=== PATIENT | male | born 1990 | race Caucasian/White ===

== ENCOUNTER 2018-05-14 13:47 | Emergency (ER) | payer OTHER, SELFPAY ==
[2018-05-14 13:55] VITALS: BP 154/98; PULSE 115; RESP 19; TEMP 37.5; O2SAT 99; BMI 18.6
--- NOTE | 2018-05-14 13:56 | DI.RAD.S_ITS ---
PROCEDURE: XR CHEST 2V INDICATIONS: SOB TECHNIQUE: 2 views of the chest were acquired. COMPARISON: None. FINDINGS: Surgical changes and devices: None. Lungs and pleura: No pleural effusions or pneumothorax. Lungs are clear. Mediastinum: Mediastinal contours are normal. Heart size is normal. Bones and chest wall: No suspicious bony abnormalities. Soft tissues appear unremarkable. IMPRESSION: Negative chest. No acute cardiopulmonary process is evident. Dictated by: Ayan Maradiaga M.D. on 05/14/2018 at 13:43 Approved by: Ayan Maradiaga M.D. on 05/14/2018 at 13:46
[2018-05-14 14:15] LABS: Add Manual Diff / Slide Review NO; Basophils Percent Auto 0.3 % (0-2); Eosinophils Percent Auto 1.3 % (2-4); Hematocrit 46.3 % (41-53); Hemoglobin 15.7 g/dL (13.5-17.5); Lymphocytes Percent Auto 16.7 % (25-40); Mean Corpuscular HGB Conc 33.9 % (30-36); Mean Corpuscular Hemoglobin 32.7 PG (26-34); Mean Corpuscular Volume 96.3 fL (80-100); Monocytes Percent Auto 6.8 % (3-14); Neutrophils Absolute Auto 8200 /uL (3000-5900); Neutrophils Percent Auto 74.9 % (50-75); Platelet Count 326 X10^3/uL (150-400); Red Blood Cell Count 4.81 X10^6/uL (4.5-5.9); Red Cell Distribution Width 12.9 % (11.6-14.8)
--- NOTE | 2018-05-14 14:15 | PC.NURSE ---
Patient appears anxious. States he has been known to be anxious in the past. Pt repeatedly asks if there is anything serious going on. Reassured pt that we will let him know as soon as we find anything out. Pt talking to family on phone.
--- NOTE | 2018-05-14 14:15 | ED.CHESTPAIN ---
HPI - Chest Pain General Chief Complaint: Chest Pain Stated Complaint: Chest Pain Time Seen by Provider: 05/14/18 13:49 Source: patient Mode of arrival: ambulatory Limitations: no limitations History of Present Illness HPI narrative: 27M nonsmoker, otherwise healthy presents to the emergency department with a chief complaint of left anterior chest pain for the past few days. He has had some runny nose and nasal congestion along with sore throat but denies cough nor fever or chills. He denies any shortness of breath. He denies any injury. He denies any history of the same. He has had no recent long-distance travel, prior clots, injuries or surgeries. He denies any strong family history of cardiac disease. MD complaint: chest pain Onset (ago): day(s) Duration: intermittent Pain location: left chest Severity: mild Quality: dull Pain radiation: none Relieving factors: nothing Exacerbating factors: nothing Context: recent illness Treatments prior to arrival chest pain: none Related Data Home Medications Medication Instructions Recorded Confirmed [facility] Vitapack 1 packet PO DAILY 05/14/18 05/14/18 acetaminophen 1 dose PO PRN PRN 05/14/18 05/14/18 Allergies Allergy/AdvReac Type Severity Reaction Status Date / Time No Known Allergies Allergy Uncoded 09/13/17 12:09 Review of Systems Review of Systems All systems reviewed & are unremarkable except as noted in HPI and below Constitutional Denies chills, Denies fever(s), Denies lethargy and Denies weakness Eyes Denies change in vision, Denies eye discharge, Denies irritation and Denies loss of vision ENT Ears, Nose, Mouth, and Throat: Denies change in voice, Denies neck pain and Denies sore throat Cardiovascular Reports chest pain, Denies irregular heart rhythm, Denies lightheadedness, Denies palpitations, Denies dyspnea, Denies dyspnea on exertion and Denies orthopnea Respiratory Denies cough, Denies dyspnea, Denies dyspnea on exertion and Denies wheezing Gastrointestinal Gastrointestinal: Denies abdominal pain, Denies change in bowel habits, Denies diarrhea, Denies nausea and Denies vomiting Genitourinary Denies hematuria, Denies flank pain, Denies urinary incontinence and Denies urinary urgency Musculoskeletal Denies neck pain Integumentary/Breasts Denies pruritus, Denies erythema, Denies rash and Denies wounds Neurologic Denies confusion, Denies loss of vision and Denies weakness Psychiatric Denies anxiety, Denies confusion, Denies depression, Denies homicidal ideation and Denies suicidal ideation Endocrine Denies palpitations Hematologic/Lymphatic Denies easy bruising Allergic/Immunologic Denies wheezing [facility], [facility] Social History Smoking Status: Never smoker Exam Narrative Exam Narrative: 27-year-old patient obviously anxious and in mild distress. Initial Vital Signs Initial Vital Signs: Vital Signs Temperature 99.5 F 05/14/18 13:55 Pulse Rate 115 H 05/14/18 13:55 Respiratory Rate 19 05/14/18 13:55 Blood Pressure 154/98 H 05/14/18 13:55 Pulse Oximetry 99 05/14/18 13:55 Const General: cooperative and well developed Nutritional Appearance: well nourished Orientation: alert, awake, oriented x3 and not confused HENMT Head: normocephalic and atraumatic Ears: external ears normal and TM's normal bilaterally Nose: external nose normal and No nasal discharge Face and sinus: sinuses nontender, face symmetric, no sinus tenderness and No dry mucous membranes Mouth: oral mucosae normal and moist mucous membranes Teeth and gingiva: dentition normal Throat: tonsils normal and uvula midline Neck Neck: normal visual inspection, trachea midline, No lymphadenopathy, No midline deformity and No JVD Lymphatic: No lymphedema Resp Effort & Inspection: normal respiratory effort, able to speak in complete sentences, no respiratory distress and no use of accessory muscles Auscultation: clear to auscultation bilaterally, no rales, no rhonchi and no wheezes GI Inspection: non-distended Palpation: soft, no hepatosplenomegaly, No guarding, No pulsatile mass and No tender Auscultation: normal bowel sounds Back/Spine/Pelvis Back: No CVA tenderness Cervical Spine: cervical ROM normal and No pain with cervical ROM Thoracic/Lumbar Spine: thoracic and lumbar spine normal to inspection Neuro General: alert, oriented x3, gait normal and no focal motor deficits Speech: speech normal Psych Appearance: well kempt Mental Status: mental status grossly normal Attitude: cooperative Thought Content: normal and suicidality Judgment: judgment good Course Orders Ordered: ED Orders 05/14/18 13:56 XR chest 2V Stat EKG-12 Lead Stat 05/14/18 14:00 Influenza A and B by PCR Rapid Stat 05/14/18 14:10 Basic Metabolic Panel Stat Complete Blood Count AUTO DIFF Stat D Dimer Stat Troponin I Stat Discontinued Medications Sodium Chloride (Normal Saline 0.9%) 1,000 mls @ 1,000 mls/hr IV BOLUS ONE Stop: 05/14/18 14:54 Last Infusion: 05/14/18 15:15 Dose: 0 mls/hr Admin: 05/14/18 14:16 Dose: 1,000 mls/hr Ketorolac Tromethamine (Toradol) 15 mg IV NOW ONE Stop: 05/14/18 13:56 Last Admin: 05/14/18 14:16 Dose: 15 mg Vital Signs - 8 hr 05/14/18 13:55 05/14/18 14:27 05/14/18 14:50 Temperature 99.5 F Pulse Rate 115 H 97 H 85 Respiratory Rate 19 20 Blood Pressure 154/98 H Blood Pressure [Right Arm] 142/74 H Pulse Oximetry 99 100 05/14/18 14:55 05/14/18 15:46 05/14/18 15:48 Temperature 99.2 F Pulse Rate 99 H 98 H 105 H Respiratory Rate 19 20 16 Blood Pressure 124/62 Blood Pressure [Right Arm] 123/68 124/62 Pulse Oximetry 100 100 98 MDM - Chest Pain Differential Diagnosis Likely fracture of rib, pneumothorax, stable angina, unstable angina pectoris, atypical chest pain, st elevation myocardial infarction, costochondritis, chest pain and biliary colic Medical Records Data Attestation: I reviewed the patient's medical records. Lab Data Attestation: I reviewed the patient's lab results. Result diagrams: 05/14/18 14:10 05/14/18 14:10 Lab Results 05/14/18 05/14/18 05/14/18 Range/Units 14:00 14:10 14:10 WBC 11.0 (4.5-11.0) X10^3/uL RBC 4.81 (4.5-5.9) X10^6/uL Hgb 15.7 (13.5-17.5) g/dL Hct 46.3 (41-53) % MCV 96.3 (80-100) fL MCH 32.7 (26-34) PG MCHC 33.9 (30-36) % RDW 12.9 (11.6-14.8) % Plt Count 326 (150-400) X10^3/uL Neut % (Auto) 74.9 (50-75) % Lymph % (Auto) 16.7 L (25-40) % [place] % (Auto) 6.8 (3-14) % Eos % (Auto) 1.3 L (2-4) % Baso % (Auto) 0.3 (0-2) % Neut # (Auto) 8200 H (3565-0285) /uL D-Dimer (<230) ng/mL Sodium 143 (137-145) mmol/L Potassium 4.0 (3.4-5.1) mmol/L Chloride 104 (98-107) mmol/L Carbon Dioxide 21 L (22-32) mmol/L BUN 17 (9-20) mg/dL Creatinine 0.80 (0.66-1.25) mg/dL Estimated GFR > 60.0 (>60) mL/min BUN/Creatinine Ratio 21.3 (6-22) Glucose 93 (70-100) mg/dL Calcium 9.7 (8.4-10.2) mg/dL Troponin I < 0.012 (0.01-0.034) ng/mL Influenza A & B (PCR) Negative (Negative) 05/14/18 Range/Units 14:10 WBC (4.5-11.0) X10^3/uL RBC (4.5-5.9) X10^6/uL Hgb (13.5-17.5) g/dL Hct (41-53) % MCV (80-100) fL MCH (26-34) PG MCHC (30-36) % RDW (11.6-14.8) % Plt Count (150-400) X10^3/uL Neut % (Auto) (50-75) % Lymph % (Auto) (25-40) % [place] % (Auto) (3-14) % Eos % (Auto) (2-4) % Baso % (Auto) (0-2) % Neut # (Auto) (4769-8243) /uL D-Dimer < 200 (<230) ng/mL Sodium (137-145) mmol/L Potassium (3.4-5.1) mmol/L Chloride (98-107) mmol/L Carbon Dioxide (22-32) mmol/L BUN (9-20) mg/dL Creatinine (0.66-1.25) mg/dL Estimated GFR (>60) mL/min BUN/Creatinine Ratio (6-22) Glucose (70-100) mg/dL Calcium (8.4-10.2) mg/dL Troponin I (0.01-0.034) ng/mL Influenza A & B (PCR) (Negative) Point of Care Testing Rapid Strep A Negative Imaging Data Chest x-ray: Radiologist's impression: [address] [address] XRay Report Signed Patient: Nomi Arguello [facility]#: [id number] : 1990Acct:[id number] Age/Sex: 27 / MDate of Service: 05/14/18 Loc: ED Accession Number: [id number] Procedure: XR chest 2V Ordering Provider: Rian Deras D.O. PROCEDURE: XR CHEST 2V INDICATIONS: SOB TECHNIQUE: 2 views of the chest were acquired. COMPARISON: None. FINDINGS: Surgical changes and devices: None. Lungs and pleura: No pleural effusions or pneumothorax. Lungs are clear. Mediastinum: Mediastinal contours are normal. Heart size is normal. Bones and chest wall: No suspicious bony abnormalities. Soft tissues appear unremarkable. IMPRESSION: Negative chest. No acute cardiopulmonary process is evident. Dictated by: Ayan Maradiaga M.D. on 05/14/2018 at 13:43 Approved by: Ayan Maradiaga M.D. on 05/14/2018 at 13:46 ECG Data Attestation: I personally reviewed and interpreted this ECG as follows: Prior ECG tracings: not available for review Interpretation: EKG is normal sinus rhythm rate [102 ] and free of any signs of ischemia or ectopy. No ST segmental elevation or depression. No T wave inversions MDM Narrative Medical decision making narrative: Multiple etiologies of this patient's chest pain considered including ischemic but thought less likely given lack of risk factors, classic ischemic description of pain or EKG changes. Pulmonary embolism considered but no imaging needed given low pretest probability and risk factors. Discharge Plan Departure Patient Disposition: Home Clinical Impression: Atypical chest pain Discharge Date/Time: 05/14/18 15:48 Interventions: ED Discharge Assessment Last Done: 05/14/18 15:46 Instructions: DI for Atypical Chest Pain Activity Restrictions/Additional Instructions: *You have been diagnosed with [ atypical chest pain ] *What to do: *Take medications as directed *Follow up with your primary care provider in 2-3 days, call for an appointment. Let them know you were seen in the Emergency Department and that we ask that you be seen in follow up *Return to ER if you should have any new, worsening or concerning symptoms Prescriptions: No Action acetaminophen 325 mg Tablet 1 dose PO PRN PRN (Reason: PAIN) RF: 0 Gnc Vitapack 1 packet PO DAILY RF: 0
[2018-05-14] MEDS: SODIUM CHLORIDE 0.9% 1,000 ML 1000 ML IV (14:16)
[2018-05-14] MEDS: KETOROLAC 60 MG/2 ML VIAL 15 MG IV (14:16)
--- NOTE | 2018-05-14 14:23 | ED_ITS ---
HPI - Chest Pain General Chief Complaint: Chest Pain Stated Complaint: Chest Pain Time Seen by Provider: 05/14/18 13:49 Source: patient Mode of arrival: ambulatory Limitations: no limitations History of Present Illness HPI narrative: 27M nonsmoker, otherwise healthy presents to the emergency department with a chief complaint of left anterior chest pain for the past few days. He has had some runny nose and nasal congestion along with sore throat but denies cough nor fever or chills. He denies any shortness of breath. He denies any injury. He denies any history of the same. He has had no recent long -distance travel, prior clots, injuries or surgeries. He denies any strong family history of cardiac disease. MD complaint: chest pain Onset (ago): day(s) Duration: intermittent Pain location: left chest Severity: mild Quality: dull Pain radiation: none Relieving factors: nothing Exacerbating factors: nothing Context: recent illness Treatments prior to arrival chest pain: none Related Data Home Medications Medication Instructions Recorded Confirmed [facility] Vitapack 1 packet PO DAILY 05/14/18 05/14/18 acetaminophen 1 dose PO PRN PRN 05/14/18 05/14/18 Allergies Allergy/AdvReac Type Severity Reaction Status Date / Time No Known Allergies Allergy Uncoded 09/13/17 12:09 Review of Systems Review of Systems All systems reviewed & are unremarkable except as noted in HPI and below Constitutional Denies chills, Denies fever(s), Denies lethargy and Denies weakness Eyes Denies change in vision, Denies eye discharge, Denies irritation and Denies loss of vision ENT Ears, Nose, Mouth, and Throat: Denies change in voice, Denies neck pain and Denies sore throat Cardiovascular Reports chest pain, Denies irregular heart rhythm, Denies lightheadedness, Denies palpitations, Denies dyspnea, Denies dyspnea on exertion and Denies orthopnea Respiratory Denies cough, Denies dyspnea, Denies dyspnea on exertion and Denies wheezing Gastrointestinal Gastrointestinal: Denies abdominal pain, Denies change in bowel habits, Denies diarrhea, Denies nausea and Denies vomiting Genitourinary Denies hematuria, Denies flank pain, Denies urinary incontinence and Denies urinary urgency Musculoskeletal Denies neck pain Integumentary/Breasts Denies pruritus, Denies erythema, Denies rash and Denies wounds Neurologic Denies confusion, Denies loss of vision and Denies weakness Psychiatric Denies anxiety, Denies confusion, Denies depression, Denies homicidal ideation and Denies suicidal ideation Endocrine Denies palpitations Hematologic/Lymphatic Denies easy bruising Allergic/Immunologic Denies wheezing [facility] Social History Smoking Status: Never smoker Exam Narrative Exam Narrative: 27-year-old patient obviously anxious and in mild distress. Initial Vital Signs Initial Vital Signs: Vital Signs Temperature 99.5 F 05/14/18 13:55 Pulse Rate 115 H 05/14/18 13:55 Respiratory Rate 19 05/14/18 13:55 Blood Pressure 154/98 H 05/14/18 13:55 Pulse Oximetry 99 05/14/18 13:55 Const General: cooperative and well developed Nutritional Appearance: well nourished Orientation: alert, awake, oriented x3 and not confused HENMT Head: normocephalic and atraumatic Ears: external ears normal and TM's normal bilaterally Nose: external nose normal and No nasal discharge Face and sinus: sinuses nontender, face symmetric, no sinus tenderness and No dry mucous membranes Mouth: oral mucosae normal and moist mucous membranes Teeth and gingiva: dentition normal Throat: tonsils normal and uvula midline Neck Neck: normal visual inspection, trachea midline, No lymphadenopathy, No midline deformity and No JVD Lymphatic: No lymphedema Resp Effort & Inspection: normal respiratory effort, able to speak in complete sentences, no respiratory distress and no use of accessory muscles Auscultation: clear to auscultation bilaterally, no rales, no rhonchi and no wheezes GI Inspection: non-distended Palpation: soft, no hepatosplenomegaly, No guarding, No pulsatile mass and No tender Auscultation: normal bowel sounds Back/Spine/Pelvis Back: No CVA tenderness Cervical Spine: cervical ROM normal and No pain with cervical ROM Thoracic/Lumbar Spine: thoracic and lumbar spine normal to inspection Neuro General: alert, oriented x3, gait normal and no focal motor deficits Speech: speech normal Psych Appearance: well kempt Mental Status: mental status grossly normal Attitude: cooperative Thought Content: normal and suicidality Judgment: judgment good Course Orders Ordered: ED Orders 05/14/18 13:56 XR chest 2V Stat EKG-12 Lead Stat 05/14/18 14:00 Influenza A and B by PCR Rapid Stat 05/14/18 14:10 Basic Metabolic Panel Stat Complete Blood Count AUTO DIFF Stat D Dimer Stat Troponin I Stat Discontinued Medications Sodium Chloride (Normal Saline 0.9%) 1,000 mls @ 1,000 mls/hr IV BOLUS ONE Stop: 05/14/18 14:54 Last Infusion: 05/14/18 15:15 Dose: 0 mls/hr Admin: 05/14/18 14:16 Dose: 1,000 mls/hr Ketorolac Tromethamine (Toradol) 15 mg IV NOW ONE Stop: 05/14/18 13:56 Last Admin: 05/14/18 14:16 Dose: 15 mg Vital Signs - 8 hr 05/14/18 13:55 05/14/18 14:27 05/14/18 14:50 Temperature 99.5 F Pulse Rate 115 H 97 H 85 Respiratory Rate 19 20 Blood Pressure 154/98 H Blood Pressure [Right Arm] 142/74 H Pulse Oximetry 99 100 05/14/18 14:55 05/14/18 15:46 05/14/18 15:48 Temperature 99.2 F Pulse Rate 99 H 98 H 105 H Respiratory Rate 19 20 16 Blood Pressure 124/62 Blood Pressure [Right Arm] 123/68 124/62 Pulse Oximetry 100 100 98 MDM - Chest Pain Differential Diagnosis Likely fracture of rib, pneumothorax, stable angina, unstable angina pectoris, atypical chest pain, st elevation myocardial infarction, costochondritis, chest pain and biliary colic Medical Records Data Attestation: I reviewed the patient's medical records. Lab Data Attestation: I reviewed the patient's lab results. Result diagrams: 05/14/18 14:10 05/14/18 14:10 Lab Results 05/14/18 05/14/18 05/14/18 Range/Units 14:00 14:10 14:10 WBC 11.0 (4.5-11.0) X10^3/uL RBC 4.81 (4.5-5.9) X10^6/uL Hgb 15.7 (13.5-17.5) g/dL Hct 46.3 (41-53) % MCV 96.3 (80-100) fL MCH 32.7 (26-34) PG MCHC 33.9 (30-36) % RDW 12.9 (11.6-14.8) % Plt Count 326 (150-400) X10^3/uL Neut % (Auto) 74.9 (50-75) % Lymph % (Auto) 16.7 L (25-40) % [place] % (Auto) 6.8 (3-14) % Eos % (Auto) 1.3 L (2-4) % Baso % (Auto) 0.3 (0-2) % Neut # (Auto) 8200 H (8365-1340) /uL D-Dimer (<230) ng/mL Sodium 143 (137-145) mmol/L Potassium 4.0 (3.4-5.1) mmol/L Chloride 104 (98-107) mmol/L Carbon Dioxide 21 L (22-32) mmol/L BUN 17 (9-20) mg/dL Creatinine 0.80 (0.66-1.25) mg/dL Estimated GFR > 60.0 (>60) mL/min BUN/Creatinine Ratio 21.3 (6-22) Glucose 93 (70-100) mg/dL Calcium 9.7 (8.4-10.2) mg/dL Troponin I < 0.012 (0.01-0.034) ng/mL Influenza A & B (PCR) Negative (Negative) 05/14/18 Range/Units 14:10 WBC (4.5-11.0) X10^3/uL RBC (4.5-5.9) X10^6/uL Hgb (13.5-17.5) g/dL Hct (41-53) % MCV (80-100) fL MCH (26-34) PG MCHC (30-36) % RDW (11.6-14.8) % Plt Count (150-400) X10^3/uL Neut % (Auto) (50-75) % Lymph % (Auto) (25-40) % [place] % (Auto) (3-14) % Eos % (Auto) (2-4) % Baso % (Auto) (0-2) % Neut # (Auto) (7718-2009) /uL D-Dimer < 200 (<230) ng/mL Sodium (137-145) mmol/L Potassium (3.4-5.1) mmol/L Chloride (98-107) mmol/L Carbon Dioxide (22-32) mmol/L BUN (9-20) mg/dL Creatinine (0.66-1.25) mg/dL Estimated GFR (>60) mL/min BUN/Creatinine Ratio (6-22) Glucose (70-100) mg/dL Calcium (8.4-10.2) mg/dL Troponin I (0.01-0.034) ng/mL Influenza A & B (PCR) (Negative) Point of Care Testing Rapid Strep A Negative Imaging Data Chest x-ray: Radiologist's impression: [address] [address] XRay Report Signed Patient: Nomi Arguello [facility]#: [id number] : 1990Acct:[id number] Age/Sex: 27 / MDate of Service: 05/14/18 Loc: ED Accession Number: [id number] Procedure: XR chest 2V Ordering Provider: Rian Deras D.O. PROCEDURE: XR CHEST 2V INDICATIONS: SOB TECHNIQUE: 2 views of the chest were acquired. COMPARISON: None. FINDINGS: Surgical changes and devices: None. Lungs and pleura: No pleural effusions or pneumothorax. Lungs are clear. Mediastinum: Mediastinal contours are normal. Heart size is normal. Bones and chest wall: No suspicious bony abnormalities. Soft tissues appear unremarkable. IMPRESSION: Negative chest. No acute cardiopulmonary process is evident. Dictated by: Ayan Maradiaga M.D. on 05/14/2018 at 13:43 Approved by: Ayan Maradiaga M.D. on 05/14/2018 at 13:46 ECG Data Attestation: I personally reviewed and interpreted this ECG as follows: Prior ECG tracings: not available for review Interpretation: EKG is normal sinus rhythm rate [102 ] and free of any signs of ischemia or ectopy. No ST segmental elevation or depression. No T wave inversions MDM Narrative Medical decision making narrative: Multiple etiologies of this patient's chest pain considered including ischemic but thought less likely given lack of risk factors, classic ischemic description of pain or EKG changes. Pulmonary embolism considered but no imaging needed given low pretest probability and risk factors. Discharge Plan Departure Patient Disposition: Home Clinical Impression: Atypical chest pain Discharge Date/Time: 05/14/18 15:48 Interventions: ED Discharge Assessment Last Done: 05/14/18 15:46 Instructions: DI for Atypical Chest Pain Activity Restrictions/Additional Instructions: *You have been diagnosed with [ atypical chest pain ] *What to do: *Take medications as directed *Follow up with your primary care provider in 2-3 days, call for an appointment. Let them know you were seen in the Emergency Department and that we ask that you be seen in follow up *Return to ER if you should have any new, worsening or concerning symptoms Prescriptions: No Action acetaminophen 325 mg Tablet 1 dose PO PRN PRN (Reason: PAIN) RF: 0 Gnc Vitapack 1 packet PO DAILY RF: 0
[2018-05-14 14:27] VITALS: BP 142/74; PULSE 97; RESP 20; O2SAT 100
[2018-05-14 14:29] LABS: Influenza A and B by PCR Rapid Negative (Negative)
[2018-05-14 14:34] LABS: BUN Creatinine Ratio 21.3 (6-22); Blood Urea Nitrogen 17 mg/dL (9-20); Calcium 9.7 mg/dL (8.4-10.2); Carbon Dioxide 21 mmol/L (22-32); Chloride 104 mmol/L (98-107); Estimated Glomerular Filt Rate > 60.0 mL/min (>60); Glucose 93 mg/dL (70-100); HEMOLYSIS < 15 (0-50); Sodium 143 mmol/L (137-145)
[2018-05-14 14:50] VITALS: PULSE 85
[2018-05-14 14:52] LABS: Troponin I < 0.012 ng/mL (0.01-0.034)
[2018-05-14 14:55] VITALS: BP 123/68; PULSE 99; RESP 19; O2SAT 100
[2018-05-14 15:28] LABS: D Dimer < 200 ng/mL (<230)
[2018-05-14 15:46] VITALS: BP 124/62; PULSE 98; RESP 20; TEMP 37.3; O2SAT 100
[2018-05-14 15:48] VITALS: BP 124/62; PULSE 105; RESP 16; O2SAT 98
== END 2018-05-14 15:48 | disposition home or self-care (01) ==
PROVIDERS: Emergency Provider Emergency Medicine
DX: R07.89 Other chest pain (principal)
CPT/HCPCS: 36591; 71046; 80048; 84484; 85025; 85379; 87400; 87880; 93005; 93010; 96361; 96374; 99283; 99285; J1885